=== PATIENT | female | born 1980 | race Caucasian/White ===

== ENCOUNTER 2016-08-31 10:37 | Emergency (ER) ==
[2016-08-31 10:42] VITALS: BP 127/90; TEMP 98.1; BMI 21.9
--- NOTE | 2016-08-31 11:17 | ED.PDOC ---
General ED Provider: Dr. SHAYLA ALEX Chief Complaint: Eye Problem Stated Complaint: pink eye Time Seen by Physician: 10:36 Mode of Arrival: Walk-In Information Source: Patient Exam Limitations: No limitations Primary Care Provider: ASUNCION SAUCEDO Nursing and Triage Documentation Reviewed and Agree: Yes EENT Complaint Exam - Eye Complaint/Exam Onset/Duration: 1 day Symptoms Are: Still present Timing: Constant Initial Severity: Moderate Current Severity: Moderate Location: Left Character: Reports: Dull Aggravating: Reports: Light, Blinking Alleviating: Reports: Darkness Associated Signs and Symptoms: Reports: Photophobia, Clear drainage. Denies: Purulent drainage, Vision impairment, Fever, Swelling Related History: Reports: Similar episode Eye Surgical History: Reports: None Penetrating Injury Risk Factors: None Globe Rupture Risk Factors: None Acute Glaucoma Risk Factors: None Optic Artery Occlusion Risk Factors: None Visual Field: Normal Extraocular Movement: Normal Orbit Findings: Normal Globe Findings: Intact Lid Findings: Normal Conjunctival Findings: Red Corneal Findings: Clear Fluorescein Uptake: No Differential Diagnoses: Conjunctivitis Review of Systems - Review Of Systems Constitutional: Reports: No symptoms Eyes: Reports: Drainage Ears, Nose, Mouth, Throat: Reports: No symptoms Respiratory: Reports: No symptoms Cardiac: Reports: No symptoms GI: Reports: No symptoms : Reports: No symptoms Musculoskeletal: Reports: No symptoms Skin: Reports: No symptoms Neurological: Reports: No symptoms Endocrine: Reports: No symptoms Hematologic/Lymphatic: Reports: No symptoms All Other Systems: Reviewed and Negative Past Medical History - Past Medical History Previously Healthy: Yes Endocrine: Reports: None Cardiovascular: Reports: None Respiratory: Reports: None Hematological: Reports: None Gastrointestinal: Reports: None Genitourinary: Reports: None Neuro/Psych: Reports: None Musculoskeletal: Reports: None Cancer: Reports: None Last Menstrual Period: none - Surgical History General Surgical History: Reports: None - Family History Family History: Reports: None - Social History Smoking Status: Current every day smoker, Heavy tobacco smoker Hx Substance Use: No Alcohol Screening: None Physical Exam - Physical Exam Appearance: Well-appearing, No pain distress, Well-nourished Eyes: [place] (left eye red ) ENT: Ears normal, Nose normal, Oropharynx normal Respiratory: Airway patent, Breath sounds clear, Breath sounds equal, Respirations nonlabored Cardiovascular: RRR, Pulses normal, No rub, No murmur GI/: Soft, Nontender, No masses, Bowel sounds normal, No Organomegaly Musculoskeletal: Normal strength, ROM intact, No edema, No calf tenderness Skin: Warm, Dry, Normal color Neurological: Sensation intact, Motor intact, Reflexes intact, Cranial nerves intact, Alert, Oriented Psychiatric: Affect appropriate, Mood appropriate Critical Care Note - Critical Care Note Total Time (mins): 0 Course - Course Vital Signs: Temp Pulse Resp BP Pulse Ox 08/31/16 10:38 98.1 F 90 18 127/90 97 Departure - Departure Time of Disposition: 11:17 Disposition: HOME SELF-CARE Discharge Problem: Conjunctivitis Qualifiers: Conjunctivitis type: acute Acute conjunctivitis type: unspecified Laterality: left Qualifier Code: (H10.32) Unspecified acute conjunctivitis, left eye Condition: Good Pt referred to PMD for follow-up: No Additional Instructions: Please call your Family Physician as soon as possible to schedule a follow-up appointment. Allergies/Adverse Reactions: Allergies codeine Adverse Reaction (Verified 12/31/15 06:11) CHEST TIGHTENS/CANT BREATHE Home Medications: Ambulatory Orders Ciprofloxacin HCl [Cipro] 250 mg PO Q12HR #14 tablet 12/31/15 Ciprofloxacin Opth Lety [Cipro 0.3% Opth Lety] 2 drop OP Q4HR #1 vial 12/31/15 Tobramycin [Tobrex] 2 drop OP QID #1 bottle 08/31/16
== END 2016-08-31 11:29 | disposition home or self-care (01) ==
LOC: ED 10:37
DX: H10.32 Unspecified acute conjunctivitis, left eye (principal); F17.210 Nicotine dependence, cigarettes, uncomplicated
CPT/HCPCS: 99282

== ENCOUNTER 2016-10-01 01:11 | Emergency (ER) ==
[2016-10-01] MEDS ORDERED: ZOFRAN 4 MG/2 ML IVP STA (01:28)
--- NOTE | 2016-10-01 01:28 | ED.PDOC ---
General ED Provider: Dr. CAMPBELL BERMUDEZ Chief Complaint: Nausea/Vomiting Stated Complaint: Patient is a 36 year old female who states that she started vomiting 2 days ago then had diarrhea later that day, was getting better then 9pm got nauseated again. Denies any Nausea or vomiting tonight. She is still able to keep fluids down Time Seen by Physician: 01:25 Mode of Arrival: Walk-In Information Source: Patient Exam Limitations: No limitations Primary Care Provider: ASUNCION SAUCEDO Nursing and Triage Documentation Reviewed and Agree: Yes GI Complaint Exam - Vomiting/Diarrhea Complaint/Exam Onset/Duration: 1 day Symptoms Are: Still present Episodes of Vomiting over last 24 Hours: 3 Episodes of Diarrhea Over Last 24 Hours: 3 Initial Severity: Moderate Current Severity: Moderate Character of Vomiting: Reports: Non-bilious Character of Diarrhea: Reports: Bloody Aggravating: Reports: None Alleviating: Reports: Clear liquids Associated Signs and Symptoms: Denies: Dizziness, Light-headedness, Melena, Hematemesis, Fever, Abdominal pain, Cramping Non-GI Risk Factors: Reports: None. Denies: Vomiting due to neuro, Vomiting due to cardiac Surgical Obstruction Risk Factors: Reports: None Related Surgical History: Reports: None Abdominal Findings: Present: None [place] Respirations Present: No Differential Diagnoses: Gastritis, Viral Gastroenteritis, UTI Review of Systems - Review Of Systems Constitutional: Reports: No symptoms Eyes: Reports: No symptoms Ears, Nose, Mouth, Throat: Reports: No symptoms Respiratory: Reports: No symptoms Cardiac: Reports: No symptoms GI: Reports: Diarrhea, Nausea, Poor appetite, Vomiting : Reports: No symptoms Musculoskeletal: Reports: No symptoms Skin: Reports: No symptoms Neurological: Reports: No symptoms Endocrine: Reports: No symptoms Hematologic/Lymphatic: Reports: No symptoms All Other Systems: Reviewed and Negative Past Medical History - Past Medical History Previously Healthy: Yes Endocrine: Reports: None Cardiovascular: Reports: None Respiratory: Reports: None Hematological: Reports: None Gastrointestinal: Reports: None Genitourinary: Reports: None Neuro/Psych: Reports: None Musculoskeletal: Reports: None Cancer: Reports: None Last Menstrual Period: PT HAS HAD A HYSTERECTOMY - Surgical History General Surgical History: Reports: None - Family History Family History: Reports: None - Social History Smoking Status: Current every day smoker, Heavy tobacco smoker Hx Substance Use: No Alcohol Screening: None Physical Exam - Physical Exam Appearance: Ill-appearing Ill-appearing: Mild Eyes: [place], EOMI, Conjunctiva clear ENT: Ears normal, Nose normal, Oropharynx normal Respiratory: Airway patent, Breath sounds clear, Breath sounds equal, Respirations nonlabored Cardiovascular: RRR, Pulses normal, No rub, No murmur GI/: Soft, Nontender, No masses, Bowel sounds normal, No Organomegaly Musculoskeletal: Normal strength, ROM intact, No edema, No calf tenderness Skin: Warm, Dry, Normal color Neurological: Sensation intact, Motor intact, Reflexes intact, Cranial nerves intact, Alert, Oriented Psychiatric: Affect appropriate, Mood appropriate Critical Care Note - Critical Care Note Total Time (mins): 0 Course - Course Hematology/Chemistry: 10/01/16 01:35 10/01/16 01:35 Orders, Labs, Meds: Lab Review 10/01/16 01:35 WBC 10.42 H RBC 4.40 Hgb 12.8 Hct 37.9 MCV 86.1 MCH 29.1 MCHC 33.8 RDW Coeff of [place] 13.2 Plt Count 253 Immature Gran % (Auto) 0.8 Neut % (Auto) 47.6 Lymph % (Auto) 35.4 [place] % (Auto) 11.8 H Eos % (Auto) 3.8 Baso % (Auto) 0.6 Immature Gran # (Auto) 0.1 Neut # 5.0 Lymph # 3.7 H [place] # 1.2 Eos # 0.4 Baso # 0.1 Sodium 140 Potassium 3.4 L Chloride 105 Carbon Dioxide 27 Anion Gap 11.4 BUN 6 L Creatinine 0.64 Estimated GFR (MDRD) 104.00 BUN/Creatinine Ratio 9.37 Glucose 97 Calcium 9.4 Total Bilirubin 0.25 AST 19 ALT 19 Alkaline Phosphatase 92 Total Protein 7.6 Albumin 3.8 Globulin 3.8 Albumin/Globulin Ratio 1.00 Amylase 52 Lipase 34 Urine Color Yellow Urine Clarity Clear Urine pH 6.0 Ur Specific [place] <=1.005 Urine Protein Negative Urine Glucose (UA) Negative Urine Ketones Negative Urine Blood Negative Urine Nitrite Negative Urine Bilirubin Negative Urine Urobilinogen 0.2 Ur Leukocyte Esterase Negative Orders Category Date Time Status ED IV/MEDIPORT/POWERPORT .ONCE EMERGENCY 10/01/16 01:29 Active AMYLASE Stat LAB 10/01/16 01:35 Completed CBC W/ AUTO DIFF Stat LAB 10/01/16 01:35 Completed COMPREHENSIVE METABOLIC PANEL Stat LAB 10/01/16 01:35 Completed LIPASE Stat LAB 10/01/16 01:35 Completed URINALYSIS C & S IF INDICATED Stat LAB 10/01/16 01:35 Completed Ondansetron [Zofran Odt] MEDS 10/01/16 01:49 Discontinued 4 mg PO ONCE STA Medications Discontinued Medications Generic Name Dose Route Start Last Admin Trade Name Freq PRN Reason Stop Dose Admin Ondansetron HCl 4 mg 10/01/16 01:49 10/01/16 02:00 Zofran Odt PO 10/01/16 01:50 4 mg ONCE STA Administration Vital Signs: Temp Pulse Resp BP Pulse Ox 10/01/16 01:14 98.8 F 89 18 162/93 H 96 Departure - Departure Time of Disposition: 01:35 Disposition: HOME SELF-CARE Discharge Problem: Nausea, Acute gastroenteritis Instructions: Gastroenteritis (ED) Condition: Good Pt referred to PMD for follow-up: Yes Additional Instructions: Push fluids Follow up with PCP in 3 days take over the counter diarrhea medications. Prescriptions: Ondansetron HCl [Zofran Tab] 4 mg PO Q8H PRN #14 tablet PRN Reason: Nausea / Vomiting Allergies/Adverse Reactions: Allergies codeine Adverse Reaction (Verified 10/01/16 01:21) CHEST TIGHTENS/CANT BREATHE Home Medications: Ambulatory Orders Ondansetron HCl [Zofran Tab] 4 mg PO Q8H PRN #14 tablet 10/01/16
[2016-10-01] MEDS ORDERED: SODIUM CHLORIDE 1,000 ML IV STA (01:29)
[2016-10-01] MEDS ORDERED: ZOFRAN ODT PO STA (01:49)
[2016-10-01 01:52] LABS: BILIRUBIN,URINE Negative (NEGATIVE); KETONES,URINE Negative (NEGATIVE); LEUKOCYTE ESTERASE ,URINE Negative (NEGATIVE); NITRITE,URINE Negative (NEGATIVE); PROTEIN,URINE Negative (NEGATIVE); URINE, BLOOD Negative (NEGATIVE)
[2016-10-01 01:53] LABS: ADD URINE MICROSCOPIC NO
[2016-10-01 01:57] LABS: BASOPHILS # (AUTO) 0.1 K/uL (0-0.2); BASOPHILS % (AUTO) 0.6 % (0.0-3.0); EOSINOPHILS # (AUTO) 0.4 K/ul (0.0-0.7); EOSINOPHILS % (AUTO) 3.8 % (0.0-7.0); HEMATOCRIT 37.9 % (37.0-47.0); HEMOGLOBIN 12.8 g/dl (12.0-16.0); IMMATURE GRANULOCYTE % (AUTO) 0.8 % (0.0-5.0); LYMPHOCYTES # (AUTO) 3.7 K/uL (0.60-3.4); LYMPHOCYTES % (AUTO) 35.4 (10.0-50.0); MEAN CORPUSCULAR HEMOGLOBIN 29.1 pg (27.0-31.0); MEAN CORPUSCULAR HGB CONC 33.8 (31.8-35.4); MEAN CORPUSCULAR VOLUME 86.1 fl (81.0-99.0); MONOCYTES # (AUTO) 1.2 K/uL (0.4-2.0); MONOCYTES % (AUTO) 11.8 (0-10); NEUTROPHILS % (AUTO) 47.6; PLATELET COUNT 253 10^3/uL (140-440); WHITE BLOOD COUNT 10.42 K/ul (4.6-10.2)
[2016-10-01 02:07] LABS: ALBUMIN 3.8 g/dL (3.4-5.0); ANION GAP 11.4; BILIRUBIN,TOTAL 0.25 mg/dL (0.00-1.20); BUN/CREATININE RATIO 9.37; CALCIUM 9.4 mg/dL (8.2-10.2); CREATININE 0.64 mg/dL (0.60-1.30); POTASSIUM 3.4 mmol/L (3.5-5.10); TOTAL PROTEIN 7.6 g/dL (6.4-8.2)
[2016-10-01 02:22] VITALS: BP 162/93; TEMP 98.8; BMI 21.7
== END 2016-10-01 02:25 | disposition home or self-care (01) ==
LOC: ED 01:11
DX: K52.9 Noninfective gastroenteritis and colitis, unspecified (principal); F17.210 Nicotine dependence, cigarettes, uncomplicated
CPT/HCPCS: 36415; 80053; 81001; 82150; 83690; 85025; 99283